=== PATIENT | female | born 1975 | race Caucasian/White ===

== ENCOUNTER 2020-10-18 07:27 | Day surgery (SDC) | payer OTHER ==
[~2020-10-18 07:27] MED LIST: BENADRYL50 MG PO; MEDROL4 MG PO
== END 2020-10-18 13:20 | disposition home or self-care (01) ==
LOC: AMB-ENDOS 07:27
PROVIDERS: ATTEND Colon & Rectal Surgery
DX: K29.50 Unspecified chronic gastritis without bleeding (principal); K64.0 First degree hemorrhoids; K44.9 Diaphragmatic hernia without obstruction or gangrene; Z20.822 Contact with and (suspected) exposure to COVID-19